=== PATIENT | female | born 1975 | race Caucasian/White ===

== ENCOUNTER 2017-04-12 15:30 | Outpatient (RCR) | payer OTHER, SELFPAY ==
--- NOTE | 2017-03-26 09:21 | HP.PTEVAL_ITS ---
Patient's Visit Information MERNA GUADARRAMA is a 41 year old F referred to Physical Therapy by Cecile Pool MD with a diagnosis of L hip pain. Date of Evaluation: 03/23/17 Physical Therapist: Ron Duarte PT, - Visit Plan Frequency: 2x /Week Duration: 3 Weeks Plan: L hip stretching and strengthening, core stab ex's, bike, and HEP - Subjective Subjective: Pt reports she has been in pain for about 2 months. Pt reports she was playing kick ball in December when she injured her L hip. Pt reports it was a rough game as she ran a lot and even slid into bases. Pt reports most of her pain is on the anterior region of her L hip. Pt reports no T or N at this time. Pt reports sleep diff secondary to pain if she rolls on to her L side. Pt reports she also gets pain that extends down the lateral portion of her L hip. 5 /10 pain at rest, 7/10 at worst (putting on shoes and socks. No locking up or popping of L hip. Xrays revealed no sig findings. - Pain L hip Pain Intensity (Out of 10): 5 Pain Intensity Range: 7 - Objective Neuro: B LE sensation is WNL to light touch. B pat reflex= 2/3. Palpation: Pt only has pain on the anterior portion of her L hip. No obvious deformity. MMT: L hip flexion 4/5 and painful. All other B LE 5/5 throughout. Special testing: Pt has pain with tiwari hip testing, and piriformis testing - Goals Goal 1:: Decrease L hip pain x 50% to aid with sleep Goal Time Frame: 2-4 Weeks Goal 2:: Increase L hip strength x 1 grade to aid with RTS Goal Time Frame: 2-4 Weeks Goal 3:: I with HEP Goal Time Frame: 2-4 Weeks - Rehabilitation Potential Physical Therapy Diagnosis: L hip pain, weakness, and limited ability to run secondary to pain Rehabilitation Potential: Good - Anticipated Interventions Patient/Client Instruction: Educate patient on: Condition, Plan of Care For the Purpose of:: To improve self management Therapeutic Exercise to Include: Strength training, Endurance training, Flexibilty training, Dynamic Lumbar Stabilization For the Purpose of:: To decrease pain, To increase ROM, To improve muscle performance and motor function Cryotherapy (ice pack, ice massage): Yes For the Purpose of:: To decrease pain Thank you for the opportunity to evaluate your patient. For Medicare and Medicare HMO plans, please review the plan of care and approve it. It will need to be FAXED BACK to us at [phone] for Medicare purposes. Please let me know if there are questions or concerns regarding this plan of care. Physician Signature: Date:
--- NOTE | 2017-04-12 16:08 | HP.PTDCSUM ---
HP - PT D/C Summary It has been my pleasure to treat MERNA GUADARRAMA under orders from Cecile Pool MD, for the diagnosis of L hip pain for a total of 7 visit(s). Discharge Date: Please see the following information for a summary of their discharge status. - Subjective Subjective: Pt reports she has gotten a lot better, but still has pain with activity - Pain L hip Pain Intensity (Out of 10): 3 - Overall Improvement % Improvement: 75 - Objective Objective/Function: Pain still ranges from 3/10 to 8/10 at worst, pending what activity she performs. L hip flex and ER 4-/5. All other measurements 5/5 throughout in L LE. Pt is I with HEP at this time. - Goals Goal 1:: Decrease L hip pain x 50% to aid with sleep Goal Progress: Progressing Goal 2:: Increase L hip strength x 1 grade to aid with RTS Goal Progress: Progressing Goal 3:: I with HEP Goal Progress: Goal Met - Plan Plan: Discontinue, plan on pt to RTD soon - D/C Information If there are questions or concerns regarding this patient's physical therapy, please feel free to call me at [phone]. Thank you for the referral of this patient. Sincerely, Ron Duarte, PT,
== END 2017-04-12 19:00 | disposition home or self-care (01) ==
LOC: PT 15:30
PROVIDERS: Family Provider Nurse Practitioner Primary Care; PCP Nurse Practitioner Primary Care; Visit Provider Family Medicine
DX: M25.552 Pain in left hip (principal)
CPT/HCPCS: 97110; 97161; 97530

== ENCOUNTER → 2017-05-04 15:30 | Outpatient (CLI) | payer OTHER, SELFPAY ==
--- NOTE | 2017-05-04 16:00 | MRI_ITS ---
STUDY: MRI LEFT HIP REASON FOR EXAM: Female, 41 years old. Pain TECHNIQUE: Standardized fat and water weighted pulse sequences were obtained in all 3 orthogonal planes. COMPARISON: None. FINDINGS: There is edema at the gluteus minimus insertion (image 19, 18, 17, 16, 15/30 axial T2 fat sat, 21, 20/24 sagittal proton density fat-sat). There is evidence of fusion at the lumbar spine (image 12/28 coronal T1). Normal hip joint without articular joint space narrowing. Normal acetabulum. Normal labrum. Normal femoral head. Normal femoral neck and intratrochanteric region. There is no trochanteric, iliopsoas or iliopectineal bursitis. Normal superior and inferior pubic rami. Normal pubic symphysis. Normal ischial tuberosity. Normal origin of the hamstring tendons. Normal visualized iliac wing, sacroiliac joint, and sacral ala. Normal visualized soft tissue structures of the pelvis. MRI/Lower Ext Joint Only (Routine) IMPRESSION: Insertional gluteus minimus tendinosis/myotendinous strain Electronically Signed: Arthur Casey MD at 9:39 EST Tel , Service support ,
== END ==
PROVIDERS: Family Provider Nurse Practitioner Primary Care; PCP Nurse Practitioner Primary Care
DX: M25.552 Pain in left hip (principal)
CPT/HCPCS: 73721

== ENCOUNTER 2017-05-05 23:36 | Emergency (ER) | payer OTHER, SELFPAY ==
[2017-05-05 23:37] VITALS: BP 137/97; PULSE 91; RESP 15; TEMP 36.9; BMI 22.8
[2017-05-06] MEDS: Oxymetazoline 0.05% 1 SPRAY SPRAY.BTL 2 SPRAY NASAL (00:01)
[2017-05-06] MEDS: HYDROcodone Bitartrate/Apap 5/325 Tablet PO (00:09)
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
[2017-05-06 02:11] VITALS: BP 120/70; PULSE 102; RESP 18; O2SAT 99
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
== END 2017-05-06 02:21 | disposition home or self-care (01) ==
PROVIDERS: Emergency Provider Emergency Medicine; Family Provider Nurse Practitioner Primary Care; PCP Nurse Practitioner Primary Care
DX: S02.2XXA Fracture of nasal bones, initial encounter for closed fracture (principal); S02.40DA Maxillary fracture, left side, initial encounter for closed fracture; R40.2410 Glasgow coma scale score 13-15, unspecified time; Y04.2XXA Assault by strike against or bumped into by another person, initial encounter; Y93.9 Activity, unspecified; Y92.9 Unspecified place or not applicable
CPT/HCPCS: 70486; 99283

== ENCOUNTER → 2017-09-03 13:31 | Outpatient (CLI) | payer OTHER, SELFPAY ==
[2017-09-06 16:41] LABS: HPV Reflexed? NOT INDICATED
== END ==
PROVIDERS: Visit Provider Obstetrics & Gynecology
DX: Z12.4 Encounter for screening for malignant neoplasm of cervix (principal)
CPT/HCPCS: 88175; G0145

== ENCOUNTER → 2017-10-16 07:55 | Outpatient (CLI) | payer OTHER, SELFPAY | PROVIDERS: Family Provider Nurse Practitioner Primary Care; PCP Nurse Practitioner Primary Care; Visit Provider Obstetrics & Gynecology | DX: Z12.31 Encounter for screening mammogram for malignant neoplasm of breast (principal) | CPT/HCPCS: 77063; 77067 ==

== ENCOUNTER → 2017-10-17 08:02 | Outpatient (CLI) | payer OTHER, SELFPAY | PROVIDERS: Family Provider Nurse Practitioner Primary Care; PCP Nurse Practitioner Primary Care; Visit Provider Obstetrics & Gynecology | DX: N63.0 Unspecified lump in unspecified breast (principal) | CPT/HCPCS: 76642 ==

== ENCOUNTER → 2017-10-17 14:00 | Outpatient (CLI) | payer OTHER, SELFPAY ==
--- NOTE | 2017-10-17 | BRBX_PTH ---
PATIENT: MERNA GUADARRAMA LOC: [facility] U#:[id number] AGE/SX: 49/F ROOM: RE10/17/[address]: Dr. Radha Elkins MD : 1975 BED: DIS: SPEC #: [id number] RECD: 10/17/17 15:46 STATUS: KACIE MAHI #: [id number] VIKKI: 10/17/17 00:[address]: Radha Elkins DEPT: SURGICAL PATHOLOGY RECD BY: Messi Blancas ENTERED: 10/18/17 13:42 SP TYPE: BREAST BX OT DR: Lizet Dutton, GLASS ETCHER-C Tissues: Right breast, NOS Procedures: Surgery Specimen Level IV HEADER OPERATION: Right breast mammotome biopsy PRE-OP DIAGNOSIS: Abnormal mammogram TISSUE SUBMITTED: Mammotome right breast biopsy ISCHEMIC TIME: 2 minutes MICROSCOPIC DIAGNOSIS Right breast, mammotome biopsy: Fibroadenoma. AM:tamica 10/19/17 MICROSCOPIC DESCRIPTION Slides are reviewed. GROSS DESCRIPTION Received is one container labeled with the patient's name and not further designated. The specimen consists of multiple elongated fragments of rowe-yellow fibroadipose tissue mixed with blood clot that in aggregate measure 3 x 2.5 x 0.1 cm. The entire specimen is submitted in one cassette. / SJ:rg 10/18/17 TC:5 CPT: 05283
== END ==
PROVIDERS: Family Provider Nurse Practitioner Primary Care; PCP Nurse Practitioner Primary Care; Visit Provider Surgery
DX: D24.1 Benign neoplasm of right breast (principal)
CPT/HCPCS: 88305

== ENCOUNTER → 2017-11-07 16:02 | Outpatient (CLI) | payer OTHER, SELFPAY ==
[2017-11-07 17:53] LABS: CRP < 2.90 mg/L (0.0-3.0)
[2017-11-09 16:12] LABS: Endomysial Antibody IgA Negative (Negative)
[2017-11-10 09:04] LABS: Immunoglobulin A 161 mg/dL (87-352); t-Transglutaminase IgA <2 U/mL (0-3)
== END ==
PROVIDERS: Family Provider Nurse Practitioner Primary Care; PCP Nurse Practitioner Primary Care; Visit Provider Internal Medicine Gastroenterology
DX: R10.9 Unspecified abdominal pain (principal)
CPT/HCPCS: 36415; 82784; 83516; 86140; 86255

== ENCOUNTER 2017-11-12 05:58 | Day surgery (SDC) | payer OTHER, SELFPAY ==
[2017-11-07 17:08] LABS: Hematocrit 40.5 % (37-47); Mean Corp Hgb Conc 32.1 g/gl (32-36); Mean Corpuscular Hgb 30.7 pg (27.0-32.0); Mean Corpuscular Volume 95.7 fL (81-99); Mean Platelet Vol. 10.2 fl (6.2-12.0); Platelet Count 252 K/mm3 (150-450); RBC Distribution Width SD 41.8 fl (35.1-43.9); Red Blood Count 4.23 M/mm3 (4.2-5.4); White Blood Count 6.9 K/mm3 (4.4-11.0)
[2017-11-07 17:19] LABS: International Normalized Ratio 1.1; Prothrombin Time (Protime)PT. 13.8 SECONDS (11.7-14.9)
[2017-11-07 17:21] LABS: Partial Thromboplast Time 26.8 Seconds (24.1-36.2)
[2017-11-07 17:46] LABS: Scan Indicated on CBC? Y/N NO
[2017-11-07 17:53] LABS: Pregnancy, Serum, hCG Quali. NEGATIVE Negative (0-9 Nonpreg)
[2017-11-12 06:30] VITALS: BP 113/75; PULSE 74; RESP 14; TEMP 36.6; O2SAT 98; BMI 22.9
[2017-11-12 06:40] LABS: Internal QC Validated? YES +Cl - CLEAR BKGD; Pregnancy, Urine Negative Negative
--- NOTE | 2017-11-12 07:27 | PCM.DC.D&C ---
Discharge Diet: No Restrictions Discharge Activity: May not drive while taking narcotic pain medications., May Shower, May Take a Tub Bath Return to work on:: 11/13/17 May resume sexual activity in: 1 week Weight Bearing Status: Weight bearing as tolerated Call your doctor if you observe: Fever of 101 or Higher, Inability to have a bowel movement, Using more than one pad per hour, Uncontrolled pain Additional Instructions: Take aleve or ibuprofen for mild cramping. Add Freer as needed 1 tab po q 6 hr for more severe cramping. Allergies/Adverse Reactions: Allergies latex Allergy (Verified 11/06/17 14:33) Rash scopolamine Adverse Reaction (Verified 11/06/17 14:35) Other BLURRED VISION,DIZZY Medications to take at Discharge Melatonin 3 mg PO QHS PRN PRN 11/06/17 Pnv95/Ferrous Fumarate/FA [ Formula] 1 each PO DAILY 11/06/17 Hydrocodone/Acetaminophen [[place] 5-325 Tablet] 1 each PO Q6H PRN PRN 2 Days #5 tablet 11/12/17 The following prescriptions were given: Hydrocodone/Acetaminophen [[place] 5-325 Tablet] 1 each PO Q6H PRN PRN 2 Days #5 tablet PRN Reason: Mod-Severe Pain (-12/12) Primary Care Physician: Lizet Dutton NP-C [Primary Care Provider] - Test Results: Test results from this visit will be discussed in further detail at your follow-up appointment, if applicable. Please Follow Up With: Pham Miranda MD - [phone] When: two weeks postop appointment
--- NOTE | 2017-11-12 07:30 | EMB_PTH ---
PATIENT: MERNA GUADARRAMA LOC: [facility] U#:[id number] AGE/SX: 42/F ROOM: RE11/12/[address]: Dr. Pham Miranda MD : 1975 BED: DIS: 11/12/2017 SPEC #: [id number] RECD: 11/12/17 10:16 STATUS: KACIE MAHI #: [id number] VIKKI: 11/12/17 07:[address]: Pham Miranda DEPT: SURGICAL PATHOLOGY RECD BY: Dash Pace ENTERED: 11/12/17 11:05 SP TYPE: ENDOM BX/C BENJI DR: Lizet Dutton, SENIOR CONTROL SYSTEMS ENGINEER-C Tissues: Endometrium, NOS Procedures: Surgery Specimen Level IV HEADER OPERATION: Hysteroscopy, dilation and curettage PRE-OP DIAGNOSIS: Irregular menstrual bleeding TISSUE SUBMITTED: Endometrial curettings MICROSCOPIC DIAGNOSIS Endometrial curettings: Secretory endometrium. SJ:tamica 11/13/17 MICROSCOPIC DESCRIPTION Slides are reviewed. GROSS DESCRIPTION Received in fixative is one container labeled with the patient's name and designated endometrial curettings. The specimen consists of multiple irregular fragments of pink-red soft tissue that in aggregate measure 5 x 3 x 0.8 cm. The entire specimen is submitted in four cassettes. / SJ:rg 11/12/17 TC:4 CPT: 70438
[2017-11-12 08:00] VITALS: BP 105/76; BP 113/75; PULSE 70; RESP 18; TEMP 36.8; O2SAT 98
[2017-11-12 08:05] VITALS: BP 103/69; BP 113/75; PULSE 63; RESP 18; O2SAT 98
[2017-11-12 08:10] VITALS: BP 102/69; BP 113/75; PULSE 61; RESP 18; O2SAT 98
[2017-11-12 08:15] VITALS: BP 113/75; BP 99/83; PULSE 62; RESP 18; TEMP 36.8; O2SAT 99
--- NOTE | 2017-11-12 08:19 | PCM.OP.BLANK ---
Operative Report Date of Procedure: 11/12/17 PROCEDURE: Hysteroscopy, Dilation and curettage Preoperative Diagnosis: Thickened endometrial stripe on pelvic ultrasound, 3.3 cm Irregular bleeding Postop diagnosis: Thickened endometrial stripe on pelvic ultrasound, 3.3 cm Irregular bleeding Anesthesia: MAC IV sedation Reg Driscoll CRNA 10 cc 1% lidocaine paracervical block (Yoli Miranda) Surgeon: Pham Miranda MD EBL: Minimal for case Drains: latex free straight catheter, minimal clear yellow urine Complications: none Fluids: replacement Findings: Parous appearing cervix Fluffy but normal appearing endometrium. Tubal ostia visualized,bilaterally No polyp noted. Generous endometrial curettings noted. Narrative account After the R,B,Alternatives of the procedure were reviewed with the patient , informed consent was obtained. The patient was taken to the operating room with an IV running and placed in dorsal supine position of the operating table. She was given MAC IV sedation and repositioned to the dorsal lithotomy position and prepped and draped in the usual sterile fashion. A graves speculum was placed into the vagina and the cervix was brought into view. The cervix was parous appearing. The uterus sounded to 10 cm and was slightly retroverted. The cervix was instilled with 10 cc of 1% lidocaine as a paracervical block using a 20 G spinal needle. A single toothed tenaculum was applied to the posterior lip of the cervix. The cervix was then gently probed and sequentially dilated to allow admission of the hysteroscope into the endometrial cavity. The hysteroscopy was performed with findings noted as above. NO endometrial polyp was noted and the endometrium appeared thick but otherwise normal appearing. A sharp curettage was performed and multiple small pieces of tissue were withdrawn and set aside. Good crei was noted throughout all quadrants. One final pass was conducted with the sharp curette tip advanced through the cervix to the uterine fundus . The multiple pieces of tissue were set aside for later pathology review. Excellent hemostasis was noted. The single toothed tenaculum was removed from the cervix and a RayTec was used to remove any remaining tissue and blood from the upper vagina and cervix. The procedure was terminated. The speculum was removed. The patient was returned to dorsal supine position and awakened from IV sedation and transferred to her recovery room bed in stable condition after tolerating the procedure well. Sponge, lap, needle and instrument counts were correct x two. medications given intraoperatively included 10 cc of 1% lidocaine without epinephrine instilled as a paracervical block, and Toradol 30 mg IV x one. For a complete listing of the medications given intraoperatively, see the anesthesia record.
[2017-11-12] MEDS: HYDROcodone Bitartrate/Apap 5/325 Tablet PO (08:37)
[2017-11-12 08:38] VITALS: BP 113/75; RESP 16
== END 2017-11-12 08:51 | disposition home or self-care (01) ==
LOC: SDC 06:00 → AC 06:00
PROVIDERS: Anesthesiology; Family Provider Nurse Practitioner Primary Care; PCP Nurse Practitioner Primary Care; Visit Provider Obstetrics & Gynecology
PROC: 0UDB8ZZ Extraction of Endometrium, Via Natural or Artificial Opening Endoscopic (ICD-10-PCS; CPT 58558; principal; 2017-11-12 07:20)
DX: N92.6 Irregular menstruation, unspecified (principal); F17.200 Nicotine dependence, unspecified, uncomplicated; F41.9 Anxiety disorder, unspecified; Z87.891 Personal history of nicotine dependence
CPT/HCPCS: 00952; 58558; 36415; 81025; 84703; 85027; 85610; 85730; 86850; 86900; 88305; J7120; J2405

== ENCOUNTER → 2017-12-21 09:08 | Outpatient (CLI) | payer OTHER, SELFPAY ==
--- NOTE | 2017-12-21 | COLBX_PTH ---
PATIENT: MERNA GUADARRAMA LOC: [facility] U#:[id number] AGE/SX: 49/F ROOM: RE12/21/[address]: Dr. Ash Vera MD : 1975 BED: DIS: SPEC #: [id number] RECD: 12/21/17 15:34 STATUS: KACIE MAHI #: [id number] VIKKI: 12/21/17 00:[address]: Ash Vera DEPT: SURGICAL PATHOLOGY RECD BY: Link Mackay ENTERED: 12/24/17 13:34 SP TYPE: COLON BX OTHR DR: Lizet Dutton, CABLE SPOOLER-C [facility] Tissues: A - Ileum, NOS B - COLON BIOPSY Procedures: Surgery Specimen Level IV HEADER OPERATION: Colonoscopy with biopsies PRE-OP DIAGNOSIS: Rectal bleeding / diarrhea TISSUE SUBMITTED: A - Terminal ileum, rule out Crohn's, B - Right and left colon, rule out microscopic colitis MICROSCOPIC DIAGNOSIS A. Terminal ileum, biopsy: Fragments of small intestinal mucosa, no pathologic diagnosis. B. Right and left colon, biopsy: Fragments of colonic mucosa, no pathologic diagnosis. JERSON:tamica 12/25/17 MICROSCOPIC DESCRIPTION Slides are reviewed. GROSS DESCRIPTION A - Received in fixative is one container labeled with the patient's name and designated terminal ileum. The specimen consists of multiple irregular fragments of light rowe soft tissue that in aggregate measure 1 x 0.3 x 0.1 cm. The specimen is totally submitted in one cassette. B - Received in fixative is one container labeled with the patient's name and designated right and left colon. The specimen consists of multiple irregular fragments of light rowe soft tissue that in aggregate measure 1 x 0.5 x 0.1 cm. The specimen is totally submitted in one cassette. / JERSON:tamica 12/24/17 TC:4 CPT: 85700 x2
== END ==
PROVIDERS: Family Provider Nurse Practitioner Primary Care; PCP Nurse Practitioner Primary Care; Referring Provider Internal Medicine Gastroenterology; Visit Provider Internal Medicine Gastroenterology
DX: K62.5 Hemorrhage of anus and rectum (principal); R19.7 Diarrhea, unspecified
CPT/HCPCS: 88305

== ENCOUNTER → 2019-01-23 15:27 | Outpatient (CLI) | payer OTHER, SELFPAY ==
[2019-01-31 12:16] LABS: Age Gdln ACOG Testing 30-65 (.)
[2019-01-31 13:45] LABS: HPV APTIMA, High Risk Positive (Negative); HPV Reflexed? YES, CHARGE PATIENT
== END ==
PROVIDERS: Family Provider Nurse Practitioner Primary Care; PCP Nurse Practitioner Primary Care; Visit Provider Obstetrics & Gynecology
DX: Z12.4 Encounter for screening for malignant neoplasm of cervix (principal)
CPT/HCPCS: 87624; 88175; G0145

== ENCOUNTER → 2019-02-21 16:00 | Outpatient (CLI) | payer OTHER, SELFPAY ==
--- NOTE | 2019-02-21 | CER_PTH ---
PATIENT: MERNA GUADARRAMA LOC: [facility] U#:[id number] AGE/SX: 49/F ROOM: RE02/21/[address]: Dr. Pham Miranda MD : 1975 BED: DIS: SPEC #: [id number] RECD: 02/21/19 17:21 STATUS: KACIE MAHI #: [id number] VIKKI: 02/21/19 00:[address]: Pham Miranda DEPT: SURGICAL PATHOLOGY RECD BY: Link Mackay ENTERED: 02/24/19 12:07 SP TYPE: CERV OTHR DR: Lizet Dutton, ADMINISTRATIVE PERSONAL ASSISTANT-C Tissues: Uterine cervix, NOS Procedures: Surgery Specimen Level IV HEADER OPERATION: Colposcopy PRE-OP DIAGNOSIS: LGSIL TISSUE SUBMITTED: ECC MICROSCOPIC DIAGNOSIS ECC: Fragments of benign endocervical epithelium and mucosa with chronic inflammation, blood and mucous. Negative for dysplasia. See comment. SJ:tamica 02/25/19 COMMENT Correlation with clinical findings and appropriate follow up are necessary. 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 MICROSCOPIC DESCRIPTION Slides are reviewed. GROSS DESCRIPTION Received in fixative is one container labeled with the patient's name and designated ECC. The specimen consists of multiple fragments of hemorrhagic mucoid tissue that in aggregate measure 1.5 x 1 x 0.2 cm. The specimen is totally submitted in one cassette. / SJ:tamica 02/24/19 TC:3 CPT: 45257
== END ==
PROVIDERS: Family Provider Nurse Practitioner Primary Care; PCP Nurse Practitioner Primary Care; Referring Provider Obstetrics & Gynecology; Visit Provider Obstetrics & Gynecology
DX: R87.612 Low grade squamous intraepithelial lesion on cytologic smear of cervix (LGSIL) (principal)
CPT/HCPCS: 88305

== ENCOUNTER → 2019-05-20 15:00 | Outpatient (CLI) | payer OTHER, SELFPAY ==
--- NOTE | 2019-05-20 15:04 | BI_ITS ---
MAMMOGRAPHY - BILATERAL SCREENING REASON FOR EXAM: Female, 43 years old. Routine annual screening examination. PERTINENT HISTORY: Grandmother with breast cancer. History of prior right breast biopsies. TECHNIQUE: Digital bilateral breast christy (3D mammographic acquisition) in the CC and MLO projections. 2-D mediolateral oblique (MLO) and craniocaudad (CC) views of both breasts were obtained. CAD: Full Field Digital Mammography with Computer Added Detection was performed. COMPARISON: Comparison is made with prior study October 16, 2017 and October 12, 2016. FINDINGS: Breast Composition: The breasts are heterogeneously dense, which may obscure small masses. 2 adjacent well-circumscribed nodules are seen in the medial retroareolar region of the left breast. The larger measures 1.7 cm. Correlation with ultrasound is recommended. Stable appearance of the 2 small nodular densities in the right axillary region. A tissue clip marker from prior biopsy is visualized. These are stable. No other significant abnormalities are identified. BI/SCREEN MAMM (CAD) W/CHRISTY BILAT IMPRESSION: 2 adjacent musculoskeletal nodular densities seen in the retroareolar region of the left breast as described. Correlation with ultrasound is recommended. Stable 2 small well-defined nodules in the axillary region of the right breast with evidence of prior biopsy. ASSESSMENT CATEGORY: BIRADS Category 0: Incomplete. Need additional imaging evaluation. A letter regarding these results will be sent to the patient by the facility within 30 days. Approximately 10% of breast cancers are not detected by mammography. A normal mammogram should not delay biopsy of a clinically suspicious abnormality. [id number] Electronically Signed: Toñito Nascimento, at 10:24 EDT , Service support ,
== END ==
PROVIDERS: Family Provider Nurse Practitioner Primary Care; PCP Family Medicine; Referring Provider Obstetrics & Gynecology; Visit Provider Obstetrics & Gynecology
DX: Z12.31 Encounter for screening mammogram for malignant neoplasm of breast (principal)
CPT/HCPCS: 77063; 77067

== ENCOUNTER → 2019-05-23 09:09 | Outpatient (CLI) | payer OTHER, SELFPAY ==
--- NOTE | 2019-05-23 09:10 | US_ITS ---
STUDY: ULTRASOUND BREAST - LEFT REASON FOR EXAM: Female, 43 years old. Abnormal screening mammogram. TECHNIQUE: Axial and longitudinal images of the LEFT breast were performed with a high resolution ultrasound transducer. # OF IMAGES: 62 COMPARISON: Comparison is made with prior mammogram dated May 20, 2019. FINDINGS: LEFT Breast: There is a 1.4 cm x 1.7 cm x 1.1 cm cyst with a septation in the retroareolar region of the breast at 9:00. Adjacent to this, there is a 1.1 cm x 1 signed by 0.7 cm cyst. There is also evidence of a 7 mm x 10 mm x 4 mm cyst with a septation at the 10:00 position the breast at 1 cm from the nipple. US/Breast Limited Unilateral IMPRESSION: The mammographic abnormality corresponds to cysts as described. ASSESSMENT CATEGORY: BIRADS Category 2: Benign. A letter regarding these results will be sent to the patient by the facility within 30 days. Electronically Signed: Toñito Nascimento, at 11:31 EDT , Service support ,
== END ==
PROVIDERS: PCP Family Medicine; Referring Provider Obstetrics & Gynecology; Visit Provider Obstetrics & Gynecology
DX: N63.20 Unspecified lump in the left breast, unspecified quadrant (principal)
CPT/HCPCS: 76642

== ENCOUNTER → 2019-08-13 | Outpatient (CLI) | payer OTHER, SELFPAY ==
[2019-08-16 11:16] LABS: HPV HC, High Risk Positive (Negative)
[2019-08-16 11:38] LABS: HPV Reflexed? YES, CHARGE PATIENT
== END | disposition home or self-care (01) ==
LOC: LABSPEC 10:51
PROVIDERS: PCP Family Medicine; Visit Provider Obstetrics & Gynecology
DX: R87.810 Cervical high risk human papillomavirus (HPV) DNA test positive (principal); R87.612 Low grade squamous intraepithelial lesion on cytologic smear of cervix (LGSIL)
CPT/HCPCS: 87624; 88175; G0145

== ENCOUNTER 2019-12-01 15:40 | Emergency (ER) | payer OTHER, SELFPAY ==
[2019-12-01 15:41] VITALS: BP 130/82; PULSE 115; RESP 18; TEMP 37.2; O2SAT 97; BMI 22.4
[2019-12-01 17:18] VITALS: BP 120/80; PULSE 99; RESP 16; O2SAT 96
--- NOTE | 2019-12-01 18:21 | RAD_ITS ---
STUDY: X-RAY CHEST REASON FOR EXAM: Female, 44 years old. FEVER, HEADACHE, SORE THROAT. HAD NEGATIVE COVID TEST ON SUNDAY TECHNIQUE: AP portable COMPARISON: None. FINDINGS: The lungs are clear and expanded. There is no demonstrated pleural abnormality. Normal size heart. Normal mediastinum and [place]. Normal visualized pulmonary arteries. Normal visualized aortic arch and descending thoracic aorta. Dorsal spine demonstrates minor scoliosis. There are postsurgical changes status post scoliosis correction of the lower thoracic and lumbar spine. Normal visualized ribs, clavicles, and shoulders. There is no demonstrated abnormality of the visualized soft tissue structures of the upper abdomen. RAD/Chest 1 View (Portable) IMPRESSION: No acute cardiopulmonary pathology Electronically Signed: Quinn Sanches MD at 18:59 EDT , Service support ,
[2019-12-01] MEDS: Acetaminophen 500 MG Tablet 1000 MG PO (18:31)
[2019-12-01] MEDS: 0.9% Normal Saline 1,000 ML 1000 ML IV (18:31)
[2019-12-01 18:42] LABS: Absolute Lymphocyte Count 1.37 X10^3/uL (0.83-4.51); Absolute Neutrophil Count 6.7 X10^3/uL (2.0-7.7); Basophil# 0.01 X10^3/uL; Basophil% 0.1 % (0-1); Eosinophil# 0.01 X10^3/uL; Eosinophils% 0.1 % (0-5); Hematocrit 40.8 % (37-47); Hemoglobin 13.1 g/dL (12.0-15.0); Lymphocyte # 1.37 X10^3/ul (4.0); Lymphocyte % 15.7 % (19-41); Mean Corp Hgb Conc 32.1 g/dL (32-36); Mean Corpuscular Hgb 31.3 pg (27.0-32.0); Mean Corpuscular Volume 97.4 fL (81-99); Monocyte# 0.65 X10^3/uL; Monocyte% 7.4 % (0-10); NRBC Flagged by Analyzer 0 % (0-5); Neutrophil # 6.68 X10^3/uL (2.7-7.7); Neutrophil % 76.4 % (47-70); Platelet Count 231 K/mm3 (150-450); RBC Distribution Width CV 11.5 % (11.6-14.6); RBC Distribution Width SD 41.2 fl (35.1-43.9); Red Blood Count 4.19 M/mm3 (4.2-5.4); White Blood Count 8.8 K/mm3 (4.4-11.0)
[2019-12-01 18:49] LABS: Internal QC Validated? YES +Cl - CLEAR BKGD; Pregnancy, Serum, hCG Quali. NEGATIVE Negative
[2019-12-01 18:52] LABS: Anion Gap 4 (5-15); BUN 8 mg/dL (7-18); BUN/Creat Ratio 14.3 RATIO (10-20); Calcium,Total 8.9 mg/dL (8.5-10.1); Chloride 105 mmol/L (98-107); Creatinine, Serum 0.56 mg/dL (0.55-1.02); EST Glomerular Filtration Rate 125 mL/min (>60); Est Glom Filt Rate - Afr Amer 151 mL/min (>60); Estimated Creatinine Clearance 101.39 ml/min; Glucose 89 mg/dL (74-106); Potassium 3.6 mmol/L (3.5-5.1); Sodium Level 137 mmol/L (136-145)
--- NOTE | 2019-12-01 19:04 | ED.VISSUMM ---
- ER Visit Summary Date of Service: 12/01/19 Chief Complaint: Fever History of Present Illness: The patient is a [address] Chuck cazares. 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 Reports that she has a fever that began 3 days ago. Is been 102.7 degrees. She has a sore throat is 8 of 10 severity. She describes this as sharp. Reports that she has an occasional cough is nonproductive. She does feel more short of breath than usual. She denies any chest pain. She denies abdominal pain. She is been nauseated without vomiting. No diarrhea. Reports that she has a headache this 5-10 in severity. Is a dull diffuse headache and she is had similar headaches before. She complains of generalized weakness and fatigue. Patient reports that she tested negative for COVID on November 10 and again 2 days ago. Physical Examination: Vitals: Stable. Afebrile. General: Well-nourished and well-developed. Head: Normocephalic atraumatic. HEENT: Pharyngeal erythema. No tonsillar exudate. She does have nontender cervical lymphadenopathy. This is mainly anterior. Neck: Supple, no lymphadenopathy. No JVD. Nontender. Cardiovascular: Tachycardic regular rhythm. No murmurs. Respiratory: No respiratory distress. Clear to auscultation bilaterally. Abdominal: Soft, nontender, nondistended, normal bowel sounds. No guarding, rebound, or peritoneal signs. Back: Nontender. Extremities: Nontender, no edema. Skin: Normal color, no rash. Neurologic: Alert and oriented ?3. Cranial nerves II through XII are intact. Normal strength and sensation. Psych: Normal affect. Test Results: CBC shows 7 neutrophils 76 lymphocytes of 16. Chem-7 is normal. Rapid strep is negative. test is negative. Clinical Impression(s) from Imaging Studies Chest X-Ray 12/01/19 18:21 IMPRESSION: No acute cardiopulmonary pathology Electronically Signed: Quinn Sanches MD at 18:59 EDT , Service support , Emergency Department Course and Treatment: Discussed with the patient possibility of testing her for COVID again. However, I do not think this would change the treatment. She was given Zithromax here and a throat culture was sent. Treatment Plan: Patient is instructed that she needs to quarantine until her symptoms resolve. Follow-up with her primary care physician in 10 to 14 days if not improving. Return to the emerge department for any worsening difficulty breathing or other concerns. Disposition: To home in improved and stable condition. Impression: 1. URI, possible COVID-19 infection. 2. Pharyngitis. This note was generated with [employer] dictation software. It may contain incorrect words, spelling, and punctuation that were not noted in review of the chart prior to signing ED Disposition - Plan for ED Patient: Disposition: Home or Assisted Living Instructions: ED Pharyngitis Report Pending Prescriptions: Azithromycin [Zithromax Z-Vinayak] 250 mg PO UD #1 box Prescription Printed Referrals: Nakul Santacruz MD [Primary Care Provider] - 3-5 Days if not improving
[2019-12-01 19:10] VITALS: BP 126/74; PULSE 89; RESP 17; O2SAT 99
[2019-12-01] MEDS: Azithromycin 250 MG Tablet 500 MG PO (19:15)
== END 2019-12-01 19:22 | disposition home or self-care (01) ==
LOC: ED 17:41
PROVIDERS: Emergency Provider Emergency Medicine; PCP Family Medicine
DX: J06.9 Acute upper respiratory infection, unspecified (principal); J02.9 Acute pharyngitis, unspecified; Z87.891 Personal history of nicotine dependence
CPT/HCPCS: 71045; 80048; 84703; 85025; 87880; 96360; 99285; J7030; A4216

== ENCOUNTER → 2020-02-12 13:22 | Outpatient (CLI) | payer OTHER, SELFPAY ==
[2020-02-18 16:30] LABS: HPV APTIMA, High Risk Positive (Negative)
== END ==
PROVIDERS: PCP Family Medicine; Visit Provider Obstetrics & Gynecology
DX: Z12.4 Encounter for screening for malignant neoplasm of cervix (principal)
CPT/HCPCS: 87624; 88175; G0145

== ENCOUNTER → 2020-03-02 | Outpatient (CLI) | payer OTHER, SELFPAY ==
--- NOTE | 2020-03-02 | IMM_PTH ---
PATIENT: MERNA GUADARRAMA LOC: [facility] U#:[id number] AGE/SX: 44/F ROOM: RE03/02/[address]: Dr. Bandar Monique MD : 1975 BED: DIS: 03/02/2020 SPEC #: [id number] RECD: 03/04/20 12:28 STATUS: KACIE REQ #: [id number] VIKKI: 03/02/20 00:[address]: Bandar Monique DEPT: IMMUNOHISTOCHEMISTRY RECD BY: Dede Weiss ENTERED: 03/04/20 12:28 SP TYPE: IMMUNO OTHR DR: Dr. Nakul Santacruz MD Tissues: A - Uterine cervix, NOS Procedures: p16 (initial) KI-67 (add) PHYSICIAN & INSTITUTION [place] [id number] SPECIMEN INFORMATION: Tissue Source: A - Cervical Clinical Info: LGSIL, HR/HPV Specimen Number: [id number] CPT code: 85614, 56792 METHODOLOGY: Deparaffinized sections of prefer/formalin-fixed tissue or PAP/DQ stained slides are incubated with monoclonal/polyclonal antibodies/oligonucleotide probes. Localization is made via biotin free immunoperoxidase method. Appropriate controls are performed and reacted as expected. Results on target cell population are indicated in the following table: RESULTS: ANTIBODY / CLONE RESULT Block A P16 (E6H4) negative Ki-67 (30-9) negative These tests were developed and their performance characteristics determined by [facility]. They may not have been cleared or approved by the U.S. Food and Drug Administration. The FDA has determined that such clearance or approval is not necessary. The above immunohistochemical/dualISH markers are ordered and reviewed by the Pathologist. INTERPRETATION: A. Cervix, biopsy: No evidence of dysplasia. AM:tamica 03/08/2020
--- NOTE | 2020-03-02 09:30 | CER_PTH ---
PATIENT: MERNA GUADARRAMA LOC: [facility] U#:[id number] AGE/SX: 44/F ROOM: RE03/02/[address]: Dr. Bandar Monique MD : 1975 BED: DIS: 03/02/2020 SPEC #: [id number] RECD: 03/02/20 13:46 STATUS: KACIE [place] #: [id number] VIKKI: 03/02/20 09:[address]: Bandar Monique DEPT: SURGICAL PATHOLOGY RECD BY: Dash Pace ENTERED: 03/02/20 13:47 SP TYPE: CERV OTHR DR: Dr. Nakul Santacruz MD Tissues: A - Uterine cervix, NOS B - Endocervical Procedures: Surgery Specimen Level IV HEADER OPERATION: Colposcopy PRE-OP DIAGNOSIS: LGSIL, HR/HPV TISSUE SUBMITTED: A - Cervical, B - ECC MICROSCOPIC DIAGNOSIS A. Cervix, biopsy: Squamous metaplasia and mild chronic inflammation. No evidence of dysplasia. See comment. B. Endocervix, curettings: Rare strips of benign superficial endocervix. Fragments of secretory endometrium. AM:tamica 03/04/20 COMMENT A. Results from immunohistochemistry ([id number]) for surrogate HPV marker (p16) will be reported separately. MICROSCOPIC DESCRIPTION Slides are reviewed. GROSS DESCRIPTION A - Received in fixative is one container labeled with the patient's name and designated cervical biopsy. The specimen consists of multiple irregular fragments of light rowe soft tissue that in aggregate measure 2 x 1 x 0.1 cm. The specimen is totally submitted in one cassette. B - Received in fixative is one container labeled with the patient's name and designated ECC. The specimen consists of reddish-rowe mucoid material aggregating to 2 x 2 x <0.1 cm. The specimen is totally submitted in one cassette. / AM:tamica 03/03/20 TC:3 CPT: 95410 x2
== END | disposition home or self-care (01) ==
LOC: LABSPEC 13:17
PROVIDERS: PCP Family Medicine; Visit Provider Obstetrics & Gynecology
DX: N87.0 Mild cervical dysplasia (principal)
CPT/HCPCS: 88305; 88341; 88342

== ENCOUNTER → 2020-05-25 13:35 | Outpatient (CLI) | payer OTHER, SELFPAY ==
--- NOTE | 2020-05-25 13:37 | BI_ITS ---
MAMMOGRAPHY - BILATERAL SCREENING REASON FOR EXAM: Female, 44 years old. Routine annual screening examination. PERTINENT HISTORY: Grandmother with breast cancer. Remote right excisional breast biopsy prior right ultrasound-guided breast biopsy. TECHNIQUE: Digital bilateral breast christy (3D mammographic acquisition) in the CC and MLO projections. 2-D mediolateral oblique (MLO) and craniocaudad (CC) views of both breasts were obtained. CAD: Full Field Digital Mammography with Computer Added Detection was performed. COMPARISON: Comparison is made with prior study dated 05/20/2019 and 10/16/2017. FINDINGS: Breast Composition: The breasts are heterogeneously dense, which may obscure small masses. The previously seen well-defined nodule in the retroareolar region of the left breast has increased in size. It presently measures 1.8 cm x 1.8 cm. Smaller nodule is seen adjacent to this nodule. These were demonstrated to be cysts on prior sonographic examination. A tissue clip marker is seen within the right axillary lymph nodes. No other significant abnormalities are identified. BI/SCRN MAMM (CAD)W/CHRISTY BILAT IMPRESSION: Slight increase in size of the retrocrural areolar nodule in the left breast as described. This most likely represents increasing size of the cyst. Follow-up sonogram is recommended. ASSESSMENT CATEGORY: BIRADS Category 0: Incomplete. Need additional imaging evaluation. A letter regarding these results will be sent to the patient by the facility within 30 days. Approximately 10% of breast cancers are not detected by mammography. A normal mammogram should not delay biopsy of a clinically suspicious abnormality. [id number] Electronically Signed: Toñito Nascimento MD at 14:27 EDT , Service support ,
== END ==
PROVIDERS: PCP Family Medicine; Referring Provider Student in an Organized Health Care Education/Training Program; Visit Provider Student in an Organized Health Care Education/Training Program
DX: Z12.31 Encounter for screening mammogram for malignant neoplasm of breast (principal)
CPT/HCPCS: 77063; 77067

== ENCOUNTER → 2020-05-28 12:33 | Outpatient (CLI) | payer OTHER, SELFPAY ==
--- NOTE | 2020-05-28 13:25 | US_ITS ---
STUDY: ULTRASOUND BREAST - LEFT REASON FOR EXAM: Female, 44 years old. Abnormal screening mammogram. TECHNIQUE: Axial and longitudinal images of the LEFT breast were performed with a high resolution ultrasound transducer. # OF IMAGES: 33 COMPARISON: Comparison is made with prior mammogram dated 05/25/2020 and prior sonogram of the left breast dated 05/23/2019. FINDINGS: LEFT Breast: Several cysts are seen in the left breast. The largest cyst measures 1.4 cm x 1.2 cm x 1.1 cm. It is in the retroareolar region. US/Breast Limited Unilateral IMPRESSION: Retroareolar cysts. Routine mammographic follow-up is recommended. ASSESSMENT CATEGORY: BIRADS Category 2: Benign. A letter regarding these results will be sent to the patient by the facility within 30 days. Electronically Signed: Toñito Nascimento MD at 14:19 EDT , Service support ,
== END ==
PROVIDERS: PCP Family Medicine; Referring Provider Student in an Organized Health Care Education/Training Program; Visit Provider Student in an Organized Health Care Education/Training Program
DX: R92.8 Other abnormal and inconclusive findings on diagnostic imaging of breast (principal)
CPT/HCPCS: 76642

== ENCOUNTER → 2021-02-21 | Outpatient (CLI) | payer OTHER, SELFPAY ==
[2021-02-25 09:24] LABS: HPV APTIMA, High Risk Negative (Negative)
== END | disposition home or self-care (01) ==
LOC: LABSPEC 10:37
PROVIDERS: PCP Family Medicine; Visit Provider Obstetrics & Gynecology
DX: Z12.4 Encounter for screening for malignant neoplasm of cervix (principal)
CPT/HCPCS: 87624; 88175; G0145

== ENCOUNTER → 2021-02-23 08:47 | Outpatient (CLI) | payer OTHER, SELFPAY ==
[2021-02-23 11:20] LABS: BUN 15 mg/dL (7-18); Creatinine, Serum 0.58 mg/dL (0.55-1.02); Glucose 90 mg/dL (74-106)
[2021-02-23 11:21] LABS: ALB/GLOB Ratio 1.2 RATIO (0.9-2.4); AST(SGOT) 14 U/L (15-37); Alanine Aminotransfer ALT/SGPT 24 U/L (13-56); Albumin, Serum 3.9 g/dL (3.2-5.0); Alkaline Phosphatase 66 U/L (45-117); Anion Gap 7 (5-15); BUN/Creat Ratio 25.8 RATIO (10-20); Calcium,Total 9.6 mg/dL (8.5-10.1); Chloride 105 mmol/L (98-107); Cholesterol 197 mg/dL (200); EST Glomerular Filtration Rate 119 mL/min (>60); Est Glom Filt Rate - Afr Amer 144 mL/min (>60); Globulin 3.2 g/dL (2.2-4.2); High Density Lipoprotein 65 mg/dL; Protein, Total 7.1 g/dL (6.4-8.2); Sodium Level 140 mmol/L (136-145); Thyroid Stim Hormone (TSH) 1.28 uIU/mL (0.358-3.74); Triglycerides 134 mg/dL; Very Low Density Lipoprotein 27 mg/dL (5-40)
[2021-02-23 11:30] LABS: Hemoglobin A1c 5.3 % (3.8-5.6)
== END ==
PROVIDERS: PCP Family Medicine; Visit Provider Obstetrics & Gynecology
DX: Z13.220 Encounter for screening for lipoid disorders (principal); Z13.1 Encounter for screening for diabetes mellitus
CPT/HCPCS: 36415; 80053; 80061; 83036; 84439; 84443

== ENCOUNTER 2021-05-26 13:45 | Outpatient (CLI) | payer OTHER, SELFPAY ==
--- NOTE | 2021-05-26 13:47 | BI_ITS ---
MAMMOGRAPHY - BILATERAL SCREENING REASON FOR EXAM: Female, 45 years old. Routine annual screening examination. PERTINENT HISTORY: Aunt with breast cancer. Prior right ultrasound-guided breast biopsy. Prior right excisional breast biopsy. TECHNIQUE: Digital bilateral breast christy (3D mammographic acquisition) in the CC and MLO projections. 2-D mediolateral oblique (MLO) and craniocaudad (CC) views of both breasts were obtained. CAD: Full Field Digital Mammography with Computer Added Detection was performed. COMPARISON: Comparison is made with prior examination of 05/25/2020 and 05/20/2019. FINDINGS: Breast Composition: The breasts are heterogeneously dense, which may obscure small masses. The previously seen left retroareolar nodular densities have increased in size. The largest nodule measures 2.4 cm x 2.6 cm. Smaller well-defined nodules are also seen in the retroareolar region of the right breast. Correlation with ultrasound is recommended. A tissue clip marker in the right axillary region. No other significant abnormalities are identified. BI/SCRN MAMM (CAD)W/CHRISTY BILAT IMPRESSION: Bilateral retroareolar nodules more prominent on the left side. Correlation with ultrasound is recommended. ASSESSMENT CATEGORY: BIRADS Category 0: Incomplete. Need additional imaging evaluation. A letter regarding these results will be sent to the patient by the facility within 30 days. Approximately 10% of breast cancers are not detected by mammography. A normal mammogram should not delay biopsy of a clinically suspicious abnormality. [id number] Electronically Signed: Toñito Nascimento MD at 14:26 EDT ,
== END 2021-05-26 23:59 | disposition home or self-care (01) ==
LOC: OPBI 13:45
PROVIDERS: PCP Family Medicine; Visit Provider Obstetrics & Gynecology
DX: Z12.31 Encounter for screening mammogram for malignant neoplasm of breast (principal)
CPT/HCPCS: 77063; 77067

== ENCOUNTER 2021-06-02 13:47 | Outpatient (CLI) | payer OTHER, SELFPAY ==
--- NOTE | 2021-06-02 13:52 | US_ITS ---
STUDY: ULTRASOUND BREAST - RIGHT REASON FOR EXAM: Female, 45 years old. Abnormal screening mammogram. TECHNIQUE: Axial and longitudinal images of the RIGHT breast were performed with a high resolution ultrasound transducer. # OF IMAGES: 33 COMPARISON: Comparison is made with prior mammogram dated 05/26/2021 and prior sonogram of the right breast dated 10/17/2017. FINDINGS: RIGHT Breast: Multiple cysts are seen in the retroareolar region. The largest cyst measures 7 mm x 4 mm x 5 mm. IMPRESSION: Retroareolar cysts. ASSESSMENT CATEGORY: BIRADS Category 2: Benign. A letter regarding these results will be sent to the patient by the facility within 30 days. Electronically Signed: Toñito Nascimento MD at 15:27 EDT , STUDY: ULTRASOUND BREAST - LEFT REASON FOR EXAM: Female, 45 years old. Abnormal screening mammogram. TECHNIQUE: Axial and longitudinal images of the LEFT breast were performed with a high resolution ultrasound transducer. # OF IMAGES: 33 COMPARISON: Comparison is made with prior mammogram dated 05/26/2021 and prior ultrasound of the left breast dated 05/28/2020. FINDINGS: LEFT Breast: Multiple cysts are seen in the retroareolar region of the breast. The largest cyst measures 1.8 cm x 1.8 cm x 1.4 cm. This is increased as compared to prior study. US/Breast Limited Unilateral IMPRESSION: Multiple cysts in the retroareolar region of the left breast. The largest cyst measures 1.8 cm x 1.8cm x 1.4 cm. ASSESSMENT CATEGORY: BIRADS Category 2: Benign. A letter regarding these results will be sent to the patient by the facility within 30 days. Electronically Signed: Toñito Nascimento MD at 15:28 EDT ,
== END 2021-06-02 23:59 | disposition home or self-care (01) ==
PROVIDERS: PCP Family Medicine; Visit Provider Obstetrics & Gynecology
DX: R92.8 Other abnormal and inconclusive findings on diagnostic imaging of breast (principal)
CPT/HCPCS: 76642

== ENCOUNTER → 2021-07-21 | Outpatient (CLI) | payer OTHER, SELFPAY ==
--- NOTE | 2021-07-21 12:52 | US_ITS ---
STUDY: RENAL ULTRASOUND - COMPLETE REASON FOR EXAM: Female, 45 years old. Recurrent UTIs. TECHNIQUE: Ultrasound evaluation of the kidneys was performed with real-time and static eastman-scale imaging. COMPARISON: None. FINDINGS: RIGHT KIDNEY: Normal location of the right kidney, which is normal in size. The right kidney measures 11 cm x 4.9 cm x 4.8 cm. There is a normal cortex of the right kidney. The renal cortex measures 1.4 cm. There is no right renal mass or cyst. There are no right renal calculi. There is no right hydronephrosis. DISTAL RIGHT URETER: There is non-visualization of the distal right ureter. There is no demonstrated right ureterovesical junction calculus. There is a visualized right ureteral jet. LEFT KIDNEY: Normal location of the left kidney, which is normal in size. The left kidney measures 10.2 cm x 4.6 cm x 5.7 cm. There is a normal cortex of the left kidney. The renal cortex measures 1.5 cm. There is no left renal mass or cyst. 3 mm nonobstructive intrarenal calculus. There is no left hydronephrosis. DISTAL LEFT URETER: There is non-visualization of the distal left ureter. There is no demonstrated left ureterovesical junction calculus. There is a visualized left ureteral jet. BLADDER: The distended urinary bladder has a volume of 251 ml. There is a normal wall thickness of the distended urinary bladder. There is no demonstrated mass within the urinary bladder. There are no demonstrated bladder calculi. US/Kidney and Bladder IMPRESSION: 3 mm nonobstructive calculus in the midpole of the left kidney. Electronically Signed: Toñito Nascimento MD at 13:53 EDT ,
== END | disposition home or self-care (01) ==
LOC: US 12:51
PROVIDERS: PCP Family Medicine; Referring Provider Urology; Visit Provider Urology
DX: N39.0 Urinary tract infection, site not specified (principal)
CPT/HCPCS: 76770

== ENCOUNTER → 2021-10-24 | Outpatient (CLI) | payer OTHER, SELFPAY ==
--- NOTE | 2021-10-24 16:59 | CT_ITS ---
EXAM: CT ABDOMEN AND PELVIS WITHOUT INTRAVENOUS CONTRAST CLINICAL INDICATION: STONES, UTI TECHNIQUE: Helically acquired images were obtained of the abdomen and pelvis without intravenous contrast. This CT exam was performed using one or more of the following dose reduction techniques: automated exposure control, adjustment of the mA and/or kV according to patient size, and/or use of iterative reconstruction technique. This report was created using [employer] report generation technology. COMPARISON: None. FINDINGS: LOWER THORAX: There is extensive hardware in the lower thoracic and lumbar spine. No cardiomegaly. No significant pericardial effusion. ABDOMEN: LIVER: Unremarkable. Homogeneous. GALLBLADDER AND BILE DUCTS: Unremarkable. No calcified gallstones. No gallbladder distention or wall edema. No intra- or extrahepatic biliary ductal dilation. PANCREAS: Unremarkable. No focal cystic mass. SPLEEN: Unremarkable. Normal size without focal cystic or solid mass. ADRENALS: Unremarkable. No nodules. KIDNEYS AND URETERS: Unremarkable. Normal renal size and position. No hydronephrosis. STOMACH AND BOWEL: Unremarkable. No stomach or bowel distention. No focal inflammatory change. PELVIS: APPENDIX: No evidence of acute appendicitis. BLADDER: Unremarkable. REPRODUCTIVE: Unremarkable as visualized. No mass. ABDOMEN and PELVIS: INTRAPERITONEAL SPACE: Unremarkable. No ascites or other fluid collection. No free air. BONES/JOINTS: See above. SOFT TISSUES: Unremarkable. No discrete abdominal or pelvic wall hernia. VASCULATURE: Unremarkable. Abdominal aorta is non-dilated. LYMPH NODES: Unremarkable. No enlarged lymph nodes. CT/Abdomen/Pelvis without Cont IMPRESSION: No acute findings in the abdomen or pelvis. Electronically Signed: Contreras Lechuga MD at 3:07 EDT ,
== END | disposition home or self-care (01) ==
LOC: CT 16:57
PROVIDERS: PCP Family Medicine; Referring Provider Urology; Visit Provider Urology
DX: N39.0 Urinary tract infection, site not specified (principal); N20.0 Calculus of kidney
CPT/HCPCS: 74176

== ENCOUNTER 2022-01-30 08:31 | Day surgery (SDC) | payer OTHER, SELFPAY ==
[2022-01-30] VITALS (7 sets, daily range): BP systolic 107–129; BP diastolic 58–71; PULSE 59–80; RESP 16–18; TEMP 36.6–36.9; O2SAT 98–100; BMI 22.0
[2022-01-30] MEDS: Lactated Ringers 1,000 ML 15 ML IV ×2 (08:45→10:50)
[2022-01-30 09:03] LABS: Internal QC Validated? YES +Cl - CLEAR BKGD; Pregnancy, Urine Negative Negative
--- NOTE | 2022-01-30 09:06 | PCM.HP.BLA ---
History and Physical Date of Admission: 01/30/22 Chief complaint: Desires permanent sterilization History present illness: 46-year-old for laparoscopic bilateral tubal ligation. No medical changes since last seen. All questions answered and consent signed. Obstetric history: G4, P3 with history of 3 vaginal deliveries 1 SAB Past medical history: None Medications: Sprintec Past surgical history: Spine rods, appendectomy, breast biopsy, D&C Allergies: Latex, scopolamine Family history: Denies history DVT or PE Social history: Former smoker, denies alcohol or drug use Review of systems: Besides above pertinent positives a full review of systems was performed and found to be negative Physical exam: Vitals: Blood pressure 129/71 pulse 80 respiratory rate 18 temperature 98.5 ?F SPO2 99% on room air General: Normal-appearing no acute distress HEENT: Normocephalic atraumatic no cervical of adenopathy Cardiac/respiratory: No use accessory muscles, nonlabored breathing Abdomen: Soft, nontender, nondistended Extremities: No peripheral edema normal peripheral pulses Psych: Normal affect normal demeanor nonpressured speech Assessment plan: 46-year-old for laparoscopic bilateral tubal ligation for permanent sterilization. Educated patient on the risk benefits alternatives of procedure. Patient states understanding wish to proceed. All questions were answered and consent was signed.
--- NOTE | 2022-01-30 10:11 | PCM.DC ---
Discharge Instructions Diet Discharge Diet: No restrictions Activity Discharge Activity: Return to Normal Activity, May Drive and May Shower May resume sexual activity in: 4-6 weeks Lifting Restrictions: No lifting over 25 pounds for 2 to 3 weeks Dressing / Incision Call your doctor if your incision/area has: Continuous Slow Oozing and Foul Smelling Discharge Call your doctor if you observe: Fever of 101 or Higher, Shortness of breath and Chest pain Follow Up Care Please Follow Up With: Bandar Monique MD When: 2 weeks postoperatively Test Results: Test results from this visit will be discussed in further detail at your follow-up appointment, if applicable. Discharge Plan Admission Attending Provider: Bandar Monique Primary Care Provider: Lizet Dutton NP Discharge Orders/Prescriptions Prescriptions: No Action melatonin 3 MG tablet 3 mg PO QHS PRN PRN (Reason: Sleep) PNV cmb#[id number]-ferrous fumarate-FA [ Multivitamins] 1 EACH tablet 1 ea PO DAILY Vitamin C 1,000 mg Tablet Extended Release 1,000 mg PO DAILY Probiotic 10 billion cell Capsule 10,000 mmu cells PO DAILY Referrals / Follow Up: Lizet Dutton NP, [facility] [Primary Care Provider] - Disposition Disposition (needs filled in before D/C Order can be placed): Home, Self Care
--- NOTE | 2022-01-30 10:11 | PCM.OPRPT ---
Report of Operation Date of Procedure: 01/30/22 Pre-Operative Diagnosis: Desires permanent sterilization Post-Operative Diagnosis: Desires permanent Surgery/Procedure Performed:: Laparoscopic bilateral salpingectomy Description of Surgical Findings:: Surgeon: Bandar Monique MD Anesthesia: General EBL: Minimal Urine output: 100 cc IV fluids: 700 cc Complications: None Specimen: Bilateral fallopian tubes Findings: Anterior abdominal wall bowel adhesion dissected with sharp dissection. Otherwise normal uterus, tubes, and ovaries Consent: Patient desires permanent sterilization in need of laparoscopic bilateral salpingectomy. Patient understands risk of the procedure include but are not limited to visceral or vascular injury, prolonged hospitalization, blood loss and need for transfusion, reoperation. Patient state understanding wish to proceed. All questions were answered and consent was signed. Procedure: Patient was brought back to the OR where general anesthesia was found to be adequate. Patient was prepared and draped in a dorsolithotomy position with yellowfin stirrups. A weighted speculum was placed in the posterior aspect of vagina and cervical dilators were used to dilate cervix. Uterine manipulator was placed. Veerus needle was inserted at the umbilicus, water safety test was passed. 5 mm supraumbilical midline trocar was inserted under direct visualization. Laparoscope was inserted and above findings were noted. 5 mm left lower quadrant trocar was inserted under direct visualization. As noted above, bowel adhesion to anterior abdominal wall noted and lysed with laparoscopic scissors. Good hemostasis was noted. 8 millimeter right lower quadrant trocar was inserted under direct visualization. Using atraumatic grasper and a LigaSure device the left loping tube was identified to the fimbria and the mesosalpinx was cut and cauterized, fallopian tube was transected at the cornua and sent to pathology. In a similar fashion the right fallopian tube was identified up to the fimbria and the mesosalpinx was cut and cauterized, right fallopian tube transected at the cornua and sent to pathology. Good hemostasis was noted bilaterally. Abdomen was desufflated and trochars were removed under direct visualization. Good hemostasis was noted. Trocar sites were closed in a subcutaneous fashion. Good hemostasis was noted. All counts were correct x2. Patient tolerated procedure well and was brought to recovery in stable condition.
--- NOTE | 2022-01-30 10:15 | FALS_PTH ---
PATIENT: MERNA GUADARRAMA [place] [facility] [place][id number] AGE/SX: 46/F ROOM: RE01/30/[address]: Dr. Bandar Monique MD : 1975 BED: DIS: 01/30/2022 SPEC #: [id number] RECD: 01/30/22 12:35 STATUS: KACIE REVenu #: [id number] VIKKI: 01/30/22 10:[address]: Bandar Monique DEPT: SURGICAL PATHOLOGY RECD BY: Juana Barraza ENTERED: 01/31/22 07:30 SP TYPE: FALL TUBES OTHR DR: Lizet Dutton, CARDIAC MONITOR-C Tissues: Fallopian tube Procedures: Surgery Specimen Level II HEADER OPERATION: Laparoscopic salpingectomy PRE-OP DIAGNOSIS: Sterilization TISSUE SUBMITTED: Bilateral fallopian tubes MICROSCOPIC DIAGNOSIS Right and left fallopian tubes, bilateral salpingectomies: Complete segments of fallopian tubes with no pathologic change. AM:tamica 02/01/2022 MICROSCOPIC DESCRIPTION Slides are reviewed. GROSS DESCRIPTION Received in fixative is one container labeled with the patient's name and designated bilateral fallopian tubes. The specimen consists of bilateral fallopian tubes including fimbrial ends measuring 4.5 cm in length and 0.6 cm in diameter and 3.5 cm in length and 1 cm in diameter. The fallopian tubes are not identified as right or left. Sections reveal unremarkable cut surfaces. Cell Changer sections are submitted in two cassettes with each cassette containing one fallopian tube. / JERSON:tamica 01/31/2022 TC:4 CPT: 21367 x2
[2022-01-30] MEDS: Ketorolac 30 MG/ML Syringe IV (10:34)
== END 2022-01-30 11:55 | disposition home or self-care (01) ==
LOC: SDC 08:32 → AC 08:33
PROVIDERS: Anesthesiology; PCP Nurse Practitioner Primary Care; Referring Provider Obstetrics & Gynecology; Visit Provider Obstetrics & Gynecology
PROC: (CPT 58661; principal; 2022-01-30 10:00)
DX: Z30.2 Encounter for sterilization (principal); Z87.891 Personal history of nicotine dependence
CPT/HCPCS: 58661; 81025; 88302; J7120; J2405

== ENCOUNTER → 2022-03-01 | Outpatient (CLI) | payer OTHER, SELFPAY ==
[2022-03-11 14:21] LABS: HPV APTIMA, High Risk Positive (Negative)
== END | disposition home or self-care (01) ==
LOC: LABSPEC 16:47
PROVIDERS: PCP Nurse Practitioner Primary Care; Visit Provider Obstetrics & Gynecology
DX: Z12.4 Encounter for screening for malignant neoplasm of cervix (principal)
CPT/HCPCS: 87624; 88175; G0145

== ENCOUNTER → 2022-04-05 | Outpatient (CLI) | payer OTHER, SELFPAY ==
--- NOTE | 2022-04-05 | IMM_PTH ---
PATIENT: MERNA GUADARRAMA LOC: [facility] U#:[id number] AGE/SX: 46/F ROOM: RE04/05/[address]: Dr. Bandra Monique MD : 1975 BED: DIS: 04/05/2022 SPEC #: [id number] RECD: 04/06/22 14:32 STATUS: KACIE REVenu #: [id number] VIKKI: 04/05/22 00:[address]: Bandar Monique DEPT: IMMUNOHISTOCHEMISTRY RECD BY: Dede Weiss ENTERED: 04/06/22 14:32 SP TYPE: IMMUNO OTHR DR: Lizet Dutton, UNIT NURSE-C Tissues: A - Uterine cervix, NOS B - Endocervical Procedures: p16 (initial) KI-67 (add) PHYSICIAN & INSTITUTION [place] [phone] SPECIMEN INFORMATION: Tissue Source: A ? Cervix at 6 & 12 o?clock, B ? Endocervical curettings Clinical Info: ASCUS, positive HPV Specimen Number: [id number] A & B CPT code: 70221 x2, 91724 x2 METHODOLOGY: Deparaffinized sections of prefer/formalin-fixed tissue or PAP/DQ stained slides are incubated with monoclonal/polyclonal antibodies/oligonucleotide probes. Localization is made via biotin free immunoperoxidase method. Appropriate controls are performed and reacted as expected. Results on target cell population are indicated in the following table: RESULTS: ANTIBODY / CLONE RESULT Block A P16 (E6H4) positive, rare cell Ki-67 (30-9) positive, low Block B P16 (E6H4) positive, rare cell Ki-67 (30-9) positive, low These tests were developed and their performance characteristics determined by [facility]. They may not have been cleared or approved by the [place]. Food and Drug Administration. The FDA has determined that such clearance or approval is not necessary. The above immunohistochemical/dualISH markers are ordered and reviewed by the Pathologist. INTERPRETATION: A. Cervix at 6 & 12 o?clock, biopsy: Focal HPV change suspected. B. Endocervical curettings: Focal HPV change suspected. AM:tamica 04/07/2022
--- NOTE | 2022-04-05 09:00 | CER_PTH ---
PATIENT: MERNA GUADARRAMA [id number] AGE/SX: 46/F ROOM: RE04/05/[address]: Dr. Bandar Monique MD : 1975 BED: DIS: 04/05/2022 SPEC #: [id number] RECD: 04/05/22 10:35 STATUS: KACIE DENNEYVenu #: [id number] VIKKI: 04/05/22 09:[address]: Bandar Monique DEPT: SURGICAL PATHOLOGY RECD BY: Dash Pace ENTERED: 04/05/22 11:16 SP TYPE: CERV OTHR DR: Lizet Dutton, GEOINT ANALYST-C Tissues: A - Uterine cervix, NOS B - Endocervical Procedures: Surgery Specimen Level IV HEADER OPERATION: Colposcopy PRE-OP DIAGNOSIS: ASCUS, positive HPV TISSUE SUBMITTED: A ? Cervical biopsy, 6 and 12 o?clock, B ? Endocervical curettings MICROSCOPIC DIAGNOSIS A. Cervix at 6 and 12 o?clock, biopsy: Focal HPV change suspected. Changes consistent with HPV cytopathic change. See comment. B. Endocervix, curettings: Strips of benign superficial endocervix. Focal HPV change suspected in detached squamous mucosal fragments See comment. AM:tamica 04/06/2022 COMMENT A & B. Results from immunohistochemistry ([id number]) for surrogate HPV marker (p16) will be reported separately. Case has been reviewed in consultation with Dr. Guevara who concurs with the above diagnosis. IDC:SJ MICROSCOPIC DESCRIPTION Slides are reviewed. GROSS DESCRIPTION A - Received in fixative is one container labeled with the patient's name and designated 6 and 12 o'clock cervical biopsy. The specimen consists of multiple irregular fragments of light rowe soft tissue that in aggregate measure 1 x 0.5 x 0.1 cm. The specimen is totally submitted in one cassette. B - Received in fixative is one container labeled with the patient's name and designated ECC. The specimen consists of multiple fragments of hemorrhagic mucoid tissue that in aggregate measure 1.5 x 1 x 0.1 cm. The specimen is totally submitted in one cassette. / JERSON:tamica 04/05/2022 TC:2 CPT: 10061 x2
== END | disposition home or self-care (01) ==
LOC: LABSPEC 09:47
PROVIDERS: PCP Nurse Practitioner Primary Care; Visit Provider Obstetrics & Gynecology
DX: R87.810 Cervical high risk human papillomavirus (HPV) DNA test positive (principal)
CPT/HCPCS: 88305; 88341; 88342

== ENCOUNTER → 2022-06-13 | Outpatient (CLI) | payer OTHER, SELFPAY ==
--- NOTE | 2022-06-13 13:41 | BI_ITS ---
MAMMOGRAPHY - BILATERAL SCREENING 3-D TOMOSYNTHESIS REASON FOR EXAM: Female, 46 years old. Routine screening PERTINENT HISTORY: Aunt with breast cancer.. TECHNIQUE: 2-D mammograms and 3-D Tomosynthesis of the breast (s) were performed. CAD was performed. COMPARISON: 05/26/2021 FINDINGS: The breast composition is heterogeneously dense that can obscure small breast masses. Scattered benign calcifications are seen. No dense spiculated masses or suspicious microcalcifications are identified. No architectural distortion is identified. There is no skin thickening or retraction. Stable nodularity in the left breast largest nodule again measures 2.4 x 2.6 cm These were shown on previous ultrasounds to represent simple cysts. There has been no significant change since the prior study. BI/SCRN MAMM (CAD)W/CHRISTY BILAT IMPRESSION: No mammographic signs of malignancy. Routine yearly mammograms recommended. ASSESSMENT CATEGORY: BIRADS Category 2: Benign. A letter regarding these results will be sent to the patient by the facility within 30 days. FOLLOW UP RECOMMENDATION: Yearly follow up mammogram recommended. (A) Approximately 10% of breast cancers are not detected by mammography. A normal mammogram should not delay biopsy of a clinically suspicious abnormality. Electronically Signed: Luis Garcia MD at 15:10 EDT ,
== END | disposition home or self-care (01) ==
PROVIDERS: PCP Nurse Practitioner Primary Care; Visit Provider Obstetrics & Gynecology
DX: Z12.31 Encounter for screening mammogram for malignant neoplasm of breast (principal); Z80.3 Family history of malignant neoplasm of breast
CPT/HCPCS: 77063; 77067